=== PATIENT | female | born 1940 | race African-American/Black ===

== ENCOUNTER 2016-09-05 13:44 | Emergency (ER) | payer OTHER, MEDICAID ==
[~2016-09-05] VITALS: Ht 172.7 cm; Wt 78.5 kg
[~2016-09-05 13:44] MED LIST: LIPI10 PO; METOPROLOL TART25 M1 PO; PLA75 PO; ZES5 PO
[2016-09-05 13:51] VITALS: BP 159/92
[2016-09-05 14:43] LABS: BASOPHIL % 0.1 % (0-2); PLATELET COUNT 195 x10^3mcL (130-400)
[2016-09-05 14:47] LABS: RED CELL DISTRIBUTION WIDTH 15.7 % (11.5-14.5)
[2016-09-05 14:50] LABS: CALCIUM 8.8 mg/dL (8.5-10.1); CARBON DIOXIDE 33.8 mmol/L (21-32); CHLORIDE SERUM 106 mmol/L (98-107); GLUCOSE SERUM 134 mg/dL (74-106); POTASSIUM SERUM 4.5 mmol/L (3.5-5.1); SODIUM SERUM 143 mmol/L (136-145)
[2016-09-05 14:56] LABS: ALBUMIN 3.6 g/dL (3.4-5.0); ALKALINE PHOSPHATASE 87 U/L (46-116); ALT/SGPT 22 U/L (14-59); AST/SGOT 18 U/L (15-37); BILIRUBIN TOTAL 0.4 mg/dL (0.20-1.00); TOTAL PROTEIN, SERUM 7.2 g/dL (6.4-8.2)
== END 2016-09-05 15:43 | disposition home or self-care (01) ==
LOC: ED 13:44
PROVIDERS: Emergency Medicine
DX: H10.023 Other mucopurulent conjunctivitis, bilateral (principal); L74.0 Miliaria rubra; E78.00 Pure hypercholesterolemia, unspecified; I10 Essential (primary) hypertension